=== PATIENT | male | born 1950 | race Caucasian/White ===

== ENCOUNTER 2021-11-07 15:55 | Emergency (ER) | payer OTHER | END 2021-11-07 17:14 | disposition home or self-care (01) | LOC: DL.ED 15:55 | DX: S70.02XA Contusion of left hip, initial encounter (principal); W19.XXXA Unspecified fall, initial encounter; Y92.002 Bathroom of unspecified non-institutional (private) residence as the place of occurrence of the external cause | CPT/HCPCS: 99283; 99284 ==

== ENCOUNTER 2023-02-25 17:47 | Emergency (ER) | payer OTHER ==
[2023-02-25] MEDS ORDERED: Sodium Chloride 0.9% 10 ML Syringe FLUSH PRN (17:56)
[2023-02-25] MEDS ORDERED: Pantoprazole 40 MG Vial IVPUSH ONE (17:59)
[2023-02-25] MEDS ORDERED: Octreotide 100 MCG/ML SDV IVPUSH ONE (18:00)
[2023-02-25] MEDS ORDERED: Pantoprazole 40 MG in Sodium Chloride 0.9% 100 ML IV SCH (18:00)
[2023-02-25] MEDS ORDERED: Octreotide 100 MCG in Sodium Chloride 0.9% 99 ML IV SCH (18:00)
[2023-02-25 18:23] LABS: BASOPHILS PERCENT AUTO 0.2 % (0.0-1.0); EOSINOPHILS PERCENT AUTO 0.1 % (1.0-3.0); MEAN CORPUSCULAR HEMOGLOBIN 20.8 pg (27.0-34.0); MEAN CORPUSCULAR HGB CONC 27.8 g/dL (33.0-35.0); MONOCYTES PERCENT AUTO 10.1 % (2-8); NEUTROPHILS PERCENT AUTO 80.6 % (42.2-75.2); PLATELET COUNT,PLT 369 10^3/uL (150-450); WHITE BLOOD CELL COUNT,WBC 9.1 10^3/uL (5.0-10.0)
[2023-02-25 18:31] LABS: HEMOGLOBIN 2.5 g/dL (14.0-18.0)
[2023-02-25 18:36] LABS: B-TYPE NATRIURETIC PEPTIDE,BNP < 5 pg/ml (0-100)
[2023-02-25 18:37] LABS: ALANINE AMINOTRANSFERASE,ALT 123 U/L (16-63); ALBUMIN 1.4 g/dL (3.4-5.0); ALKALINE PHOSPHATASE 37 U/L (46-116); ANION GAP 19.5 mEq/L (7-13); ASPARTATE AMNIOTRANSFERASE,AST 41 U/L (15-37); BILIRUBIN TOTAL 0.1 mg/dL (0.2-1.0); BLOOD UREA NITROGEN,BUN 45 mg/dL (7-18); BUN/CREATININE RATIO 26.9 (No establ ref range); CARBON DIOXIDE,CO2 8 mmol/L (21-32); CHLORIDE,CL 119 mmol/L (98-107); CREATININE 1.67 mg/dL (0.70-1.30); GLUCOSE RANDOM 86 mg/dL (70-99); LIPASE 19 U/L (16-77); POTASSIUM,K 2.5 mmol/L (3.5-5.1); PROTEIN TOTAL,TP 3.4 g/dL (6.4-8.2); SODIUM,NA 144 mmol/L (136-145)
[2023-02-25 18:38] LABS: LACTIC ACID 4.4 mmol/L (0.4-2.0)
[2023-02-25 18:40] LABS: PROTHROMBIN TIME 10.6 SEC (9.0-12.0); PTT,PARTIAL THROMBOPLSTIN TIME 18.8 SEC (22.0-34.0)
[2023-02-25 18:42] LABS: CALCIUM < 5.0 mg/dL (8.5-10.1); ESTIMATED GFR 43 mL/min (>=60)
== END 2023-02-25 20:42 ==
LOC: DL.ED 17:47
DX: K92.2 Gastrointestinal hemorrhage, unspecified (principal); D64.9 Anemia, unspecified; R55 Syncope and collapse
CPT/HCPCS: 36415; 36430; 80053; 82272; 83605; 83690; 83880; 84484; 85025; 85610; 85730; 86850; 86900; 86901; 86920; 86922; 93005; 96365; 96366; 96368; 96376; 99285-25; C9113; J2354-JA; J3490; P9016

== ENCOUNTER 2023-05-09 08:51 | Emergency (ER) | payer MEDICARE ==
[2023-05-09 09:55] LABS: APPEARANCE,URINE CLOUDY (CLEAR); BILIRUBIN,URINE NEGATIVE (NEGATIVE); COLOR,URINE YELLOW (YELLOW); GLUCOSE,URINE NEGATIVE (NEGATIVE); KETONES,URINE NEGATIVE (NEGATIVE); LEUKOCYTE ESTERASE,URINE MODERATE (NEGATIVE); NITRITE,URINE NEGATIVE (NEGATIVE); OCCULT BLOOD,URINE MODERATE (NEGATIVE); PH,URINE 7.5 (5.0-9.0); PROTEIN,URINE 100 (NEGATIVE); UROBILINOGEN,URINE 0.2 mg/dL (0.2-1.0)
[2023-05-09 10:03] LABS: BACTERIA,URINE MANY /HPF (0-FEW/HPF); EPITHELIAL CELLS,URINE FEW /HPF (NOT SEEN); WBC,URINE >100 /HPF (0-5/HPF)
== END 2023-05-09 10:32 | disposition home or self-care (01) ==
LOC: DL.ED 08:51
DX: T83.038A Leakage of other urinary catheter, initial encounter (principal)
CPT/HCPCS: 81001; 87086; 87088; 87186; 99283

== ENCOUNTER 2023-05-25 14:56 | Inpatient (IN) | payer MEDICARE ==
[2023-05-25 15:50] LABS: BASOPHILS PERCENT AUTO 0.2 % (0.0-1.0); HEMATOCRIT 28.6 % (40.0-54.0); HEMOGLOBIN 8.1 g/dL (14.0-18.0); LYMPHOCYTES PERCENT AUTO 4.1 % (20.5-50.1); MEAN CORPUSCULAR HEMOGLOBIN 19.4 pg (27.0-34.0); MEAN CORPUSCULAR HGB CONC 28.3 g/dL (33.0-35.0); MEAN CORPUSCULAR VOLUME 68.6 fL (80-100); MONOCYTES PERCENT AUTO 2.1 % (2-8); NEUTROPHILS PERCENT AUTO 93.6 % (42.2-75.2); PLATELET COUNT,PLT 423 10^3/uL (150-450); RED BLOOD CELL COUNT 4.17 10^6/uL (4.6-6.2); WHITE BLOOD CELL COUNT,WBC 13.3 10^3/uL (5.0-10.0)
[2023-05-25 15:55] LABS: APPEARANCE,URINE CLOUDY (CLEAR); BILIRUBIN,URINE NEGATIVE (NEGATIVE); COLOR,URINE YELLOW (YELLOW); GLUCOSE,URINE NEGATIVE (NEGATIVE); KETONES,URINE NEGATIVE (NEGATIVE); LEUKOCYTE ESTERASE,URINE TRACE (NEGATIVE); NITRITE,URINE NEGATIVE (NEGATIVE); OCCULT BLOOD,URINE TRACE-INTACT (NEGATIVE); PH,URINE >= 9.0 (5.0-9.0); PROTEIN,URINE >=300 (NEGATIVE); UROBILINOGEN,URINE 0.2 mg/dL (0.2-1.0)
[2023-05-25] MEDS ORDERED: cefTRIAXone 2 GM Vial IVPUSH ONE (15:58)
[2023-05-25] MEDS ORDERED: Sodium Chloride 0.9% 1,000 ML IV ONE (15:59)
[2023-05-25 16:09] LABS: ALANINE AMINOTRANSFERASE,ALT 16 U/L (16-63); ALKALINE PHOSPHATASE 86 U/L (46-116); ANION GAP 18.5 mEq/L (7-13); ASPARTATE AMNIOTRANSFERASE,AST 14 U/L (15-37); BILIRUBIN TOTAL 0.2 mg/dL (0.2-1.0); BLOOD UREA NITROGEN,BUN 30 mg/dL (7-18); BUN/CREATININE RATIO 21.4 (No establ ref range); CALCIUM 8.2 mg/dL (8.5-10.1); CARBON DIOXIDE,CO2 19 mmol/L (21-32); CHLORIDE,CL 101 mmol/L (98-107); EST CRCL DRUG DOSING (CG) 49.97 mL/min; GLUCOSE RANDOM 133 mg/dL (70-99); MAGNESIUM 1.6 mg/dL (1.8-2.4); POTASSIUM,K 3.5 mmol/L (3.5-5.1); PROTEIN TOTAL,TP 6.7 g/dL (6.4-8.2); SODIUM,NA 135 mmol/L (136-145)
[2023-05-25 16:11] LABS: A/G RATIO 0.81; C-REACTIVE PROTEIN < 0.50 ng/dL (<=0.50); ESTIMATED GFR 54 mL/min (>=60)
[2023-05-25 16:13] LABS: LACTIC ACID 2.3 mmol/L (0.4-2.0)
[2023-05-25 16:15] LABS: TRIPLE PHOSPHATE CRYSTALS,UR RARE /HPF (NOT SEEN); WBC,URINE 0-5 /HPF (0-5/HPF)
[2023-05-25 16:16] LABS: AMORPHOUS SEDIMENT,URINE FEW /HPF (NOT SEEN); BACTERIA,URINE MODERATE /HPF (0-FEW/HPF); EPITHELIAL CELLS,URINE FEW /HPF (NOT SEEN); RBC,URINE 0-5 /HPF (0-5)
[2023-05-25] MEDS ORDERED: fentaNYL 100 MCG/2 ML SDV IVPUSH ONE (16:28)
[2023-05-25] MEDS ORDERED: Ondansetron 4 MG/2 ML SDV IVPUSH ONE (16:29)
[2023-05-25 16:54] LABS: BILIRUBIN,URINE NEGATIVE (NEGATIVE); COLOR,URINE YELLOW (YELLOW); GLUCOSE,URINE NEGATIVE (NEGATIVE); KETONES,URINE NEGATIVE (NEGATIVE); LEUKOCYTE ESTERASE,URINE SMALL (NEGATIVE); NITRITE,URINE POSITIVE (NEGATIVE); OCCULT BLOOD,URINE LARGE (NEGATIVE); PH,URINE 7.5 (5.0-9.0); PROTEIN,URINE 100 (NEGATIVE); UROBILINOGEN,URINE 0.2 mg/dL (0.2-1.0)
[2023-05-25 17:01] LABS: APPEARANCE,URINE CLOUDY (CLEAR)
[2023-05-25 17:03] LABS: RBC,URINE 30-40 /HPF (0-5)
[2023-05-25 17:04] LABS: AMORPHOUS SEDIMENT,URINE FEW /HPF (NOT SEEN); BACTERIA,URINE MANY /HPF (0-FEW/HPF); EPITHELIAL CELLS,URINE FEW /HPF (NOT SEEN)
[2023-05-25] MEDS ORDERED: Ondansetron 4 MG/2 ML SDV IVPUSH PRN (18:19)
[2023-05-25] MEDS ORDERED: Docusate Sodium 100 MG Cap PO PRN (18:19)
[2023-05-25] MEDS: Enoxaparin 40 MG/0.4 ML Syringe SUBCUT SCH (21:23)
[2023-05-25] MEDS: Sodium Chloride 0.9% 1,000 ML IV SCH (21:24)
[2023-05-26] MEDS ORDERED: Calcium Carbonate 500 MG Tab.Chew PO PRN (00:39)
[2023-05-26] MEDS: Acetaminophen 325 MG Tab PO PRN ×3 (04:51→15:36)
[2023-05-26] MEDS: cefTRIAXone 1 GM Vial IVPUSH SCH ×2 (08:41→22:04)
[2023-05-26] MEDS: Enoxaparin 40 MG/0.4 ML Syringe SUBCUT SCH (08:46)
[2023-05-26] MEDS: Sodium Chloride 0.9% 1,000 ML IV SCH (11:32)
[2023-05-27] MEDS: Acetaminophen 325 MG Tab PO PRN ×2 (00:02→08:03)
[2023-05-27] MEDS: Sodium Chloride 0.9% 1,000 ML IV SCH (03:05)
[2023-05-27] MEDS: Enoxaparin 40 MG/0.4 ML Syringe SUBCUT SCH (08:03)
[2023-05-27] MEDS: cefTRIAXone 1 GM Vial IVPUSH SCH (08:03)
== END 2023-05-27 15:55 | disposition home or self-care (01) | DRG 690 ==
LOC: DL.ED 14:56 → DL.MS 17:07 → DL.ED 17:37
PROVIDERS: ADMIT Internal Medicine; ATTEND Internal Medicine
DX: N30.01 Acute cystitis with hematuria (principal); R41.82 Altered mental status, unspecified; N40.0 Benign prostatic hyperplasia without lower urinary tract symptoms; Z85.46 Personal history of malignant neoplasm of prostate; Z97.8 Presence of other specified devices; Z79.899 Other long term (current) drug therapy
CPT/HCPCS: 36415; 70450; 80053; 81001 ×2; 83605; 83735; 84145; 85025; 86140; 87040 ×2; 87086; 87088; 87186; 96361; 96374; 99285 ×2; J0696; J7030; 96375; 97161-GP; 97165-GO; 99222; 99232; 99239; A9270-GY; J1650; J2405; J3010

== ENCOUNTER 2023-09-05 11:48 | Emergency (ER) | payer MEDICARE ==
[2023-09-05 12:16] LABS: APPEARANCE,URINE CLOUDY (CLEAR); BILIRUBIN,URINE NEGATIVE (NEGATIVE); COLOR,URINE YELLOW (YELLOW); GLUCOSE,URINE NEGATIVE (NEGATIVE); KETONES,URINE NEGATIVE (NEGATIVE); LEUKOCYTE ESTERASE,URINE TRACE (NEGATIVE); NITRITE,URINE NEGATIVE (NEGATIVE); OCCULT BLOOD,URINE SMALL (NEGATIVE); PROTEIN,URINE 30 (NEGATIVE); UROBILINOGEN,URINE 0.2 mg/dL (0.2-1.0)
[2023-09-05 12:26] LABS: WBC,URINE 30-40 /HPF (0-5/HPF)
[2023-09-05 12:29] LABS: AMORPHOUS SEDIMENT,URINE OCCASIONAL /HPF (NOT SEEN); BACTERIA,URINE MANY /HPF (0-FEW/HPF); EPITHELIAL CELLS,URINE FEW /HPF (NOT SEEN); MUCUS,URINE RARE /LPF (NOT SEEN)
[2023-09-05] MEDS ORDERED: Lidocaine 2% Jelly 10 ML Urojet ONE (12:48)
[2023-09-05] MEDS: Lidocaine 2% Jelly 10 ML Urojet MUCMEM ONE (12:49)
== END 2023-09-05 13:45 | disposition home or self-care (01) ==
LOC: DL.ED 11:48
DX: N30.01 Acute cystitis with hematuria (principal); T83.511A Infection and inflammatory reaction due to indwelling urethral catheter, initial encounter; Z96.0 Presence of urogenital implants; Z79.899 Other long term (current) drug therapy
CPT/HCPCS: 51702; 81001; 87086; 99284; A9270; 99283

== ENCOUNTER 2023-11-08 16:49 | Emergency (ER) | payer MEDICARE ==
[2023-11-08 17:37] LABS: BASOPHILS PERCENT AUTO 0.3 % (0.0-1.0); EOSINOPHILS PERCENT AUTO 0.1 % (1.0-3.0); HEMATOCRIT 35.6 % (40.0-54.0); HEMOGLOBIN 10.8 g/dL (14.0-18.0); LYMPHOCYTES PERCENT AUTO 7.1 % (20.5-50.1); MEAN CORPUSCULAR HEMOGLOBIN 25.3 pg (27.0-34.0); MEAN CORPUSCULAR HGB CONC 30.3 g/dL (33.0-35.0); MEAN CORPUSCULAR VOLUME 83.4 fL (80-100); MONOCYTES PERCENT AUTO 10.5 % (2-8); PLATELET COUNT,PLT 363 10^3/uL (150-450); RED BLOOD CELL COUNT 4.27 10^6/uL (4.6-6.2); WHITE BLOOD CELL COUNT,WBC 10.7 10^3/uL (5.0-10.0)
[2023-11-08 17:45] LABS: APPEARANCE,URINE TURBID (CLEAR); BILIRUBIN,URINE NEGATIVE (NEGATIVE); COLOR,URINE YELLOW (YELLOW); GLUCOSE,URINE NEGATIVE (NEGATIVE); KETONES,URINE NEGATIVE (NEGATIVE); LEUKOCYTE ESTERASE,URINE SMALL (NEGATIVE); NITRITE,URINE POSITIVE (NEGATIVE); OCCULT BLOOD,URINE LARGE (NEGATIVE); PROTEIN,URINE >=300 (NEGATIVE); UROBILINOGEN,URINE 0.2 mg/dL (0.2-1.0)
[2023-11-08 17:50] LABS: BACTERIA,URINE MANY /HPF (0-FEW/HPF); EPITHELIAL CELLS,URINE RARE /HPF (NOT SEEN); RBC,URINE >100 /HPF (0-5); WBC,URINE >100 /HPF (0-5/HPF)
[2023-11-08 18:01] LABS: ALBUMIN 3.2 g/dL (3.4-5.0); ANION GAP 19.5 mEq/L (7-13); BILIRUBIN DIRECT 0.1 mg/dL (0.0-0.2); BILIRUBIN INDIRECT 0.3; BILIRUBIN TOTAL 0.4 mg/dL (0.2-1.0); CALCIUM 8.5 mg/dL (8.5-10.1); CREATININE 1.58 mg/dL (0.70-1.30); EST CRCL DRUG DOSING (CG) 42.26 mL/min; POTASSIUM,K 3.5 mmol/L (3.5-5.1); PROTEIN TOTAL,TP 6.7 g/dL (6.4-8.2)
[2023-11-08 18:04] LABS: A/G RATIO 0.91
[2023-11-08] MEDS: Sodium Chloride 0.9% 500 ML IV SCH (18:12)
[2023-11-08] MEDS: ceFAZolin 1 GM Vial IVPUSH ONE (19:01)
== END 2023-11-08 22:12 ==
LOC: DL.ED 16:49
DX: I21.4 Non-ST elevation (NSTEMI) myocardial infarction (principal); R47.81 Slurred speech; N30.01 Acute cystitis with hematuria; Z79.899 Other long term (current) drug therapy
CPT/HCPCS: 36415; 71045; 80048; 80076; 81001; 82947; 84484; 85025; 87040; 93005; 93010; 96361; 96374; 99285-25; 99291; J0690; J7030

== ENCOUNTER 2024-10-16 00:23 | Emergency (ER) | payer MEDICARE ==
[2024-10-16 01:19] LABS: APPEARANCE,URINE TURBID (CLEAR); BILIRUBIN,URINE SMALL (NEGATIVE); COLOR,URINE YELLOW (YELLOW); GLUCOSE,URINE NEGATIVE (NEGATIVE); KETONES,URINE 40 (NEGATIVE); LEUKOCYTE ESTERASE,URINE LARGE (NEGATIVE); NITRITE,URINE NEGATIVE (NEGATIVE); OCCULT BLOOD,URINE LARGE (NEGATIVE); PROTEIN,URINE 100 (NEGATIVE); UROBILINOGEN,URINE 0.2 mg/dL (0.2-1.0)
[2024-10-16 01:55] LABS: WBC,URINE PACKED /HPF (0-5/HPF)
[2024-10-16 01:56] LABS: BACTERIA,URINE MANY /HPF (0-FEW/HPF); EPITHELIAL CELLS,URINE RARE /HPF (NOT SEEN); RBC,URINE 20-30 /HPF (0-5)
[2024-10-16] MEDS: Cefdinir 300 MG Cap PO ONE (02:07)
[2024-10-16] MEDS: Nystatin Topical Powder 60 GM Bottle TOP ONE (02:12)
== END 2024-10-16 02:26 | disposition home or self-care (01) ==
LOC: DL.ED 00:23
DX: N39.0 Urinary tract infection, site not specified (principal); Z79.899 Other long term (current) drug therapy
CPT/HCPCS: 51702; 81001; 87086; 87088; 87186; 99283; A9270; J3490

== ENCOUNTER 2024-12-21 21:47 | Emergency (ER) | payer MEDICARE ==
[2024-12-21] MEDS: Acetaminophen/HYDROcodone 325-5 MG Tab PO ONE (23:19)
[2024-12-21] MEDS: Lidocaine 2% Jelly 10 ML Urojet MUCMEM ONE (23:20)
[2024-12-22 00:49] LABS: APPEARANCE,URINE SLIGHTLY CLOUDY (CLEAR); GLUCOSE,URINE NEGATIVE (NEGATIVE); OCCULT BLOOD,URINE MODERATE (NEGATIVE)
[2024-12-22 01:02] LABS: EPITHELIAL CELLS,URINE FEW /HPF (NOT SEEN)
[2024-12-22] MEDS: Take Home: Ciprofloxacin HCl 500 MG, 6 Tab Pack PO ONE (01:21)
== END 2024-12-22 01:22 | disposition home or self-care (01) ==
LOC: DL.ED 21:47
DX: N39.0 Urinary tract infection, site not specified (principal); Z46.6 Encounter for fitting and adjustment of urinary device; Z79.899 Other long term (current) drug therapy
CPT/HCPCS: 51702; 81001; 87086; 99283; 99284; A9270; 87088; 87186